=== PATIENT | female | born 1980 | race Caucasian/White ===

== ENCOUNTER 2016-10-08 00:29 | Emergency (ER) | payer MEDICAID ==
[~2016-10-08] VITALS: Ht 160 cm; Wt 77.1 kg
[2016-10-08 00:46] VITALS: BP 141/73
--- NOTE | 2016-10-08 01:29 | NUR ---
PT TAKEN TO OF2
--- NOTE | 2016-10-08 01:33 | NUR ---
Dr. Wray evaluating patient
[2016-10-08 01:45] VITALS: BP 137/69
== END 2016-10-08 01:45 | disposition home or self-care (01) ==
LOC: MED 00:29
DX: J06.9 Acute upper respiratory infection, unspecified (principal); J02.9 Acute pharyngitis, unspecified
CPT/HCPCS: 99283

== ENCOUNTER 2017-05-16 12:21 | Emergency (ER) | payer MEDICAID ==
[~2017-05-16] VITALS: Ht 157.5 cm; Wt 76.2 kg
[2017-05-16 12:40] VITALS: BP 136/80
[2017-05-16 14:55] LABS: APPEARANCE,URINE CLEAR (CLEAR); BILIRUBIN,URINE NEGATIVE (NEGATIVE); BLOOD, URINE NEGATIVE (NEGATIVE); COLOR,URINE YELLOW (YELLOW); LEUKOCYTE ESTERASE ,URINE NEGATIVE (NEGATIVE); NITRITE, URINE NEGATIVE (NEGATIVE); PH,URINE 7.5 (5.0-9.0); UGLUCOSE NEGATIVE (NEGATIVE)
--- NOTE | 2017-05-16 15:01 | NUR ---
Patietnt to bed 06.
--- NOTE | 2017-05-16 15:10 | NUR ---
PT PRESENTS TO ER W/C/O LBP, URINARY FREQUENCY AND VAGINAL DISCHARGE X5 DAYS.DENIES N/V/D; SKIN IS PINK/WARM/DRY; AAOX4 WITH EVEN AND STEADY GAIT; LUNGS CLEAR BL; HR EVEN AND REGULAR; PT DENIES ANY FEVER, CP, SOB, OR COUGH AT THIS TIME; PATIENT STATES PAIN OF 7/10 AT THIS TIME;PATIENT POSITIONED FOR COMFORT; HOB ELEVATED; BEDRAILS UP X2; BED DOWN. ER MD MADE AWARE OF PT STATUS.
[2017-05-16] MEDS ORDERED: KETOROLAC 60 MG/2 ML VIAL IM ONE (15:20)
[2017-05-16 16:30] VITALS: BP 127/63
== END 2017-05-16 16:29 | disposition home or self-care (01) ==
LOC: MED 12:21
DX: M54.5 Low back pain (principal); R03.0 Elevated blood-pressure reading, without diagnosis of hypertension
CPT/HCPCS: 81003; 81025; 96372; 99283; J1885

== ENCOUNTER 2018-01-18 14:32 | Emergency (ER) | payer MEDICAID ==
[~2018-01-18] VITALS: Ht 160 cm; Wt 79.1 kg
[2018-01-18 14:36] VITALS: BP 132/82
--- NOTE | 2018-01-18 14:39 | NUR ---
FTER PROVIDING URINE SAMPLE, PT AMBULATES BACK TO THE LOBBY PER DR SANCHEZ
--- NOTE | 2018-01-18 15:51 | NUR ---
PT IN NO ACUTE DISTRESS AT THE LOBBY, INFORMED OF STILL WAITING FOR AVAILABILTY
--- NOTE | 2018-01-18 16:11 | NUR ---
PT AMBULATES TO BED 7
--- NOTE | 2018-01-18 16:15 | NUR ---
PT AMBULATES TO BED 6, REPORT GIVEN TO EDUARD DONALD
--- NOTE | 2018-01-18 16:15 | NUR ---
PATIENT PRESENTS TO ED WITH COMPLAINTS OF LOWER BACK PAIN X 3 DAYS. PATIENT STATES ITS SEVERE AND DENIES TRAUMA. PATIENT PROVIDED URINE DURING TRIAGE. DENIES HX, DENIES RX. DENIES N/V/D; SKIN IS PINK/WARM/DRY; AAOX4 WITH EVEN AND STEADY GAIT; LUNGS CLEAR BL; HR EVEN AND REGULAR; PT DENIES ANY FEVER, CP, SOB, OR COUGH AT THIS TIME; PATIENT STATES PAIN OF 8/10 AT THIS TIME; VSS; PATIENT POSITIONED FOR COMFORT; HOB ELEVATED; BEDRAILS UP X1; BED DOWN. ER MD MADE AWARE OF PT STATUS.
[2018-01-18 16:47] LABS: APPEARANCE,URINE CLEAR (CLEAR); BILIRUBIN,URINE NEGATIVE (NEGATIVE); BLOOD, URINE 1+ (NEGATIVE); COLOR,URINE YELLOW (YELLOW); LEUKOCYTE ESTERASE ,URINE NEGATIVE (NEGATIVE); NITRITE, URINE NEGATIVE (NEGATIVE); UGLUCOSE NEGATIVE (NEGATIVE)
[2018-01-18 17:17] VITALS: BP 132/82
[2018-01-18 20:36] LABS: RBC,URINE 3-10 (FEW) /HPF (0-5); WBC,URINE 0-5 (RARE) /HPF (0-5)
== END 2018-01-18 17:16 | disposition home or self-care (01) ==
LOC: MED 14:32
DX: M54.9 Dorsalgia, unspecified (principal)
CPT/HCPCS: 81001; 81025; 99284

== ENCOUNTER 2018-10-30 01:38 | Emergency (ER) | payer MEDICAID ==
[~2018-10-30] VITALS: Ht 160 cm; Wt 84.4 kg
[2018-10-30 01:44] VITALS: BP 128/78
--- NOTE | 2018-10-30 01:50 | NUR ---
38/F PRESENTS SELF TO ED, C/O POSSIBLE INSECT BITE ON R BUTTOCK, NOTICED 4 DAYS AGO. NOTED BITE ZARA NOTED ON R BUTTOCK WITH SURROUNDING CIRCULAR REDNESS 3CM IN DIAMETER. PT REPORTS TENDERNESS AND DISCOMFORT, DENIES ITCHING. AOX4, GCS 15, SKIN NORMAL WARM AND DRY, RR EVEN AND UNLABORED DENIES MED HX, RX OR OTC.
--- NOTE | 2018-10-30 02:05 | NUR ---
DR TRUONG AT BEDSIDE
[2018-10-30] MEDS ORDERED: CLINDAMYCIN 600 MG/4 ML VIAL IM ONE (02:30)
[2018-10-30 03:08] VITALS: BP 133/100
--- NOTE | 2018-10-30 03:08 | NUR ---
Patient discharged with v/s stable. Written and verbal after care instructions given and explained. Patient alert, oriented and verbalized understanding of instructions. Ambulatory with steady gait. All questions addressed prior to discharge. ID band removed. Patient advised to follow up with PMD. Rx of BACTRIM, NAPROSYN given. Patient educated on indication of medication including possible reaction and side effects. Opportunity to ask questions provided and answered.
== END 2018-10-30 03:08 | disposition home or self-care (01) ==
LOC: MED 01:38
DX: S30.860A Insect bite (nonvenomous) of lower back and pelvis, initial encounter (principal); W57.XXXA Bitten or stung by nonvenomous insect and other nonvenomous arthropods, initial encounter; Y93.89 Activity, other specified; Y92.89 Other specified places as the place of occurrence of the external cause; Y99.8 Other external cause status
CPT/HCPCS: 96372; 99283; J3490

== ENCOUNTER 2018-12-22 01:22 | Emergency (ER) | payer MEDICAID ==
[~2018-12-22] VITALS: Ht 160 cm; Wt 81.6 kg
--- NOTE | 2018-12-22 01:31 | NUR ---
TO LOBBY A/W BED AMBULATORY
--- NOTE | 2018-12-22 01:43 | NUR ---
PT AMBULATED TO BED 12
--- NOTE | 2018-12-22 02:00 | NUR ---
38 YO F BIB SELF AND BOYFRIEND PRESENTS TO ED C/O 02/02 SHARP LOWER BACK PAIN X 4 DAYS. PT STATES SHE THINKS SHE MAY HAVE A UTI. REPORTS SUPRPUBIC TENDERNESS, URGENCY AND FREQUENCY BUT DENIES BURNING WITH URINATION, FEVER, HEMATURIA. -- PT AWAKE, A/O X 4, CALM, COOPERATIVE. ANSWERING QUESTIONS APPROPRIATELY. BEHAVIOR AGE APPROPROATE. -- SKIN WARM, DRY, PINK. BREATHING EVEN, UNLABORED. PMH- DENIES
--- NOTE | 2018-12-22 03:30 | NUR ---
Patient appears to be resting comfortably in bed. Vital Signs within normal limits. Respirations even and unlabored. Awaiting MD evaluation.
[2018-12-22] MEDS ORDERED: KETOROLAC 60 MG/2 ML VIAL IM ONE (04:00)
--- NOTE | 2018-12-22 04:00 | NUR ---
DR. LEGGETT EVALUATING AT BEDSIDE.
[2018-12-22 04:58] VITALS: BP 126/82
== END 2018-12-22 04:58 | disposition home or self-care (01) ==
LOC: MED 01:22
DX: S39.012A Strain of muscle, fascia and tendon of lower back, initial encounter (principal); M54.41 Lumbago with sciatica, right side; M54.42 Lumbago with sciatica, left side; X58.XXXA Exposure to other specified factors, initial encounter; Y93.89 Activity, other specified; Y92.89 Other specified places as the place of occurrence of the external cause; Y99.8 Other external cause status
CPT/HCPCS: 81002; 81025; 96372; 99283; J1885

== ENCOUNTER 2020-09-29 00:17 | Emergency (ER) | payer MEDICAID ==
[~2020-09-29] VITALS: Ht 160 cm; Wt 94.8 kg
[2020-09-29 00:32] VITALS: BP 122/83
--- NOTE | 2020-09-29 00:45 | NUR ---
PATIENT BIB SELF FOR C/O R ELBOW PAIN X 7/10 X 2 DAYS. PATIENT PRESENTS A&O X4. PATIENT STATES, "I FEEL DOWN ON MONDAY WHOLE DRINKING AND I WOKE UP TO REALLY BAD ARM PAIN AND BRUSING THE NEXT DAY. PATIENT NOTED WITH BRUSING IN DIFFERENT STAGES OF HEALING ON R UPPER ARM AND ELBOW. PATIENT STATES PAIN 7/10, SHARP, AND PROVOKED BY MOVEMENT. PATIENT STATES TOOK ADVIL EARLIER TODAY WITH INEFFECTIVE RESULTS. RADIAL PULSES STRONG AND EQUAL BILAT. CMS INTACT. SEE COMEPLETE ASSESSMENT FOR FUTHER DETAILS. MEDHX: NONE ALLERGIES: NKA
[2020-09-29] MEDS ORDERED: KETOROLAC 60 MG/2 ML VIAL IM ONE (00:50)
[2020-09-29] MEDS ORDERED: ACET-8386 PO (01:51)
[2020-09-29] MEDS ORDERED: IBUP-2213 PO (01:51)
[2020-09-29 03:18] VITALS: BP 122/83
--- NOTE | 2020-09-29 03:18 | NUR ---
Patient discharged with v/s stable. Written and verbal after care instructions given and explained. Patient alert, oriented and verbalized understanding of instructions. Ambulatory with steady gait. All questions addressed prior to discharge. ID band removed. Patient advised to follow up with PMD. Rx of HYDROCODONE/ACETAMINOPHEN, IBUPROFEN given. Patient educated on indication of medication including possible reaction and side effects. Opportunity to ask questions provided and answered.
== END 2020-09-29 03:18 | disposition home or self-care (01) ==
LOC: MED 00:17
DX: S50.01XA Contusion of right elbow, initial encounter (principal); Z79.899 Other long term (current) drug therapy; W19.XXXA Unspecified fall, initial encounter; Y93.89 Activity, other specified; Y92.89 Other specified places as the place of occurrence of the external cause; Y99.8 Other external cause status
CPT/HCPCS: 73080; 96372; 99283; J1885

== ENCOUNTER 2022-05-04 22:38 | Emergency (ER) | payer MEDICAID ==
[~2022-05-04] VITALS: Ht 160 cm; Wt 105.2 kg
[~2022-05-04 22:38] MED LIST: ACET-8386 PO; IBUP-2213 PO
[2022-05-04 23:25] VITALS: BP 137/90
--- NOTE | 2022-05-04 23:32 | NUR ---
PATIENT STATES CONGESTION FOR 3 DAYS, ABDOMINAL BLOATING FOR 2 MONTHS. OXYGEN SATURATION IS 97% ON ROOM AIR.
--- NOTE | 2022-05-04 23:56 | NUR ---
Patient ambulated with strong gait to room 4. Patient on monitor, A/Ox4, chest rise and fall symmetrical, no s/s of distress.
--- NOTE | 2022-05-05 00:21 | NUR ---
41/F BIB SELF C/C ABD BLOATING [id number]. PATIENT REPORTS TAKING TUMS WITH SOME RELIEF. PATIENT STATED THAT SHE HAD NORMAL BOWEL MOVEMENT AND FLANTUS. DENIES N/V/D/C AT THIS TIME. PATIENT ALSO REPORTS +COUGH/CONGESTION +SORE THROAT X3DAYS. DENIES SOB, FEVER. REPORTS TAKING THERAFLU AT 3PM. PATIENT AAOX4 AND AMBULATORY. LMP 10/ DENIE PMHX, RX, ALLERGIES
--- NOTE | 2022-05-05 01:04 | NUR ---
RAD AT BEDSIDE
[2022-05-05] MEDS ORDERED: BENZ200C4 PO (01:14)
[2022-05-05 01:36] VITALS: BP 135/87
--- NOTE | 2022-05-05 01:36 | NUR ---
Patient discharged with v/s stable. Written and verbal after care instructions given and explained. Patient alert, oriented and verbalized understanding of instructions. Ambulatory with steady gait. All questions addressed prior to discharge. ID band removed. Patient advised to follow up with PMD. Rx of BENZONATATE given. Patient educated on indication of medication including possible reaction and side effects. Opportunity to ask questions provided and answered.
== END 2022-05-05 01:36 | disposition home or self-care (01) ==
LOC: MED 22:38
DX: J06.9 Acute upper respiratory infection, unspecified (principal); R10.13 Epigastric pain
CPT/HCPCS: 71045; 81002; 81025; 99283; Q0092